=== PATIENT | female | born 1960 | race Caucasian/White ===

== ENCOUNTER → 2017-08-30 | Outpatient (CLI) | payer OTHER ==
[~2017-08-30] MED LIST: ALEVE 220MG220 MG PO; AMOXICILLIN875 MG PO; ASPIRIN E.C. 8181 MG PO; B-12 500 MCG PO; BENADRYL25 M2 PO; CALCIUM 600-D 61 TAB PO; FLEXERIL 1010 MG/TAB PO; GLUCOPHAGE1000 MG PO; LEXAPRO20 MG PO; MULTI VITAMINS1 TAB PO; NATURE'S BLE1000 MCG PO; ULTRAM 50MG TAB50 MG PO; VITAMIN B-6100 MG PO; VITAMIN D32000 IU PO
== END ==
LOC: COL.RAD 11:21
DX: M79.645 Pain in left finger(s) (principal)
CPT/HCPCS: J1170; J1885; J2405; J2704; J3010; J3301; Q9967

== ENCOUNTER → 2018-01-01 | Outpatient (CLI) | payer OTHER | LOC: MC.RAD 14:34 | DX: Z12.31 Encounter for screening mammogram for malignant neoplasm of breast (principal) ==

== ENCOUNTER → 2018-08-19 | Outpatient (CLI) | payer OTHER | LOC: COL.RAD 10:07 | DX: M79.645 Pain in left finger(s) (principal) | CPT/HCPCS: J3301; Q9967 ==

== ENCOUNTER → 2019-04-30 | Outpatient (CLI) | payer OTHER | LOC: MC.RAD 14:03 | DX: Z12.31 Encounter for screening mammogram for malignant neoplasm of breast (principal) ==

== ENCOUNTER → 2020-10-27 | Outpatient (CLI) | payer OTHER | LOC: MC.RAD 14:15 | DX: Z12.31 Encounter for screening mammogram for malignant neoplasm of breast (principal) ==

== ENCOUNTER → 2021-09-01 | Outpatient (CLI) | payer OTHER ==
[~2021-09-01] VITALS: Ht 172.7 cm; Wt 107.4 kg
[~2021-09-01] MED LIST changes: +BIOTIN800 MCG; +CALCIUM 600 PLU1 TAB PO; +COZAAR 50MG50 MG/TAB PO; +CRESTOR5 MG PO; +CVS SPECTRAVIT1 EA15 PO; +DUREZOL 5 ML5 ML OU; +FLONASEALLERGY NS; +GLUMETZA1000 MG PO; +NAPROSYN 2250 MG/TAB PO; +OMEGA-3 FISH1000 MG PO; +VITAMIN D31000 I1 PO; +ZOLOFT 100MG100 MG PO; +ZYRTEC 10MG10 MG PO; +tirzepatide
[2021-09-01 09:22] VITALS: BP 144/70; PULSE 68; TEMP 97.7
== END ==
LOC: COL.RAD 08:42
DX: I67.82 Cerebral ischemia (principal); R93.0 Abnormal findings on diagnostic imaging of skull and head, not elsewhere classified
CPT/HCPCS: A9585; J2250; J2704

== ENCOUNTER 2022-02-20 14:35 | Emergency (ER) | payer OTHER ==
[~2022-02-20] VITALS: Ht 167.6 cm; Wt 95.5 kg
[2022-02-20] MEDS ORDERED: ANTIVERT 25MG25 MG PO (16:18)
[2022-02-20] MEDS ORDERED: ZOFRAN ODT4 MG PO (16:19)
[2022-02-20 16:35] VITALS: BP 123/70; PULSE 84; TEMP 97.7
== END 2022-02-20 16:35 | disposition home or self-care (01) ==
LOC: COL.ER 14:35
DX: R42 Dizziness and giddiness (principal); R11.2 Nausea with vomiting, unspecified

== ENCOUNTER 2022-02-23 18:59 | Emergency (ER) | payer OTHER ==
[~2022-02-23] VITALS: Ht 167.6 cm; Wt 93.2 kg
[~2022-02-23 18:59] MED LIST changes: +ANTIVERT 25MG25 MG PO; +ZOFRAN ODT4 MG PO
[2022-02-23 19:03] VITALS: TEMP 97.6
[2022-02-23 20:22] VITALS: BP 155/81; PULSE 83
== END 2022-02-23 20:22 | disposition home or self-care (01) ==
LOC: COL.ER 18:59
DX: B34.9 Viral infection, unspecified (principal); M54.2 Cervicalgia

== ENCOUNTER → 2022-05-02 | Outpatient (CLI) | payer OTHER | LOC: MC.RAD 14:17 | DX: Z12.31 Encounter for screening mammogram for malignant neoplasm of breast (principal) ==

== ENCOUNTER → 2023-12-05 | Outpatient (CLI) | payer MEDICARE | LOC: MC.RAD 13:00 | DX: N63.20 Unspecified lump in the left breast, unspecified quadrant (principal); N64.89 Other specified disorders of breast ==

== ENCOUNTER → 2023-12-11 | Outpatient (CLI) | payer MEDICARE | LOC: MC.RAD 09:49 | DX: C50.512 Malignant neoplasm of lower-outer quadrant of left female breast (principal) | CPT/HCPCS: A4648 ==

== ENCOUNTER → 2024-06-26 | Outpatient (CLI) | payer MEDICARE ==
[~2024-06-26] MED LIST changes: +COZAAR 25MG25 MG/TAB PO; +Iohexol 300 - 10 ML VIAL ONE; +Lidocaine PF 2% (20 MG/ML) 2 ML VIAL ONE; +NORCO 325 MG-51 TAB PO; +OZEMPIC2 MG/0.75 SQ; +THE MEDICINE S200 M2 PO; +VENTOLIN0.09 MG IH
== END ==
LOC: MHCPAIN 10:15
DX: M54.16 Radiculopathy, lumbar region (principal); M54.50 Low back pain, unspecified
CPT/HCPCS: J1100; Q9967

== ENCOUNTER → 2024-07-16 | Outpatient (CLI) | payer MEDICARE ==
[~2024-07-16] MED LIST changes: -Iohexol 300 - 10 ML VIAL ONE; -Lidocaine PF 2% (20 MG/ML) 2 ML VIAL ONE
== END ==
LOC: MHCPAIN 09:44
DX: M47.816 Spondylosis without myelopathy or radiculopathy, lumbar region (principal); M48.061 Spinal stenosis, lumbar region without neurogenic claudication; M43.16 Spondylolisthesis, lumbar region
CPT/HCPCS: G0463